=== PATIENT | male | born 1970 | race Caucasian/White ===

== ENCOUNTER → 2018-02-20 | Outpatient (CLI) | payer OTHER ==
[2018-02-20 12:03] LABS: EOS # 0.2 (0.04-0.40); EOS % 2.5 % (0.0-4.0); HEMATOCRIT 45.7 % (42.0-52.0); HEMOGLOBIN 15.8 g/dL (13.5-18.0); LYMPH# 2.5 (1.50-4.00); MEAN CELL VOLUME 88 fl (78-100); MEAN CORPUSCULAR HEMOGLOBIN 31 pg (27-31); MEAN CORPUSCULAR HGB CONC 35 g/dL (33-37); MEAN PLATELET VOLUME 9.8 fl (7.4-10.4); MONO # 0.7 (0.20-0.80); NEU # 3.7 (1.40-6.50); PLATELET COUNT 271 K/mm3 (130-400); RED BLOOD COUNT 5.18 M/mm3 (4.20-5.60); RED CELL DISTRIBUTION WIDTH 12.7 % (11.5-14.5); WHITE BLOOD COUNT 7.1 K/mm3 (4.8-10.8)
[2018-02-20 12:32] LABS: ALBUMIN 4.2 g/dL (3.5-5.0); CALCIUM 9.1 mg/dL (8.4-10.2); POTASSIUM 4.6 mmol/L (3.6-5.0); TOTAL BILIRUBIN 0.7 mg/dL (0.2-1.3); TOTAL PROTEIN 7.2 g/dL (6.3-8.2)
== END ==
LOC: LAB 11:41
PROVIDERS: Family Medicine
DX: Z00.00 Encounter for general adult medical examination without abnormal findings (principal)

== ENCOUNTER → 2019-03-07 | Outpatient (CLI) | payer BC ==
[2019-03-07 11:48] LABS: EOS # 0.2 (0.04-0.40); EOS % 2.6 % (0.0-4.0); HEMATOCRIT 45.8 % (42.0-52.0); HEMOGLOBIN 15.6 g/dL (13.5-18.0); LYMPH# 2.4 (1.50-4.00); MEAN CELL VOLUME 88 fl (78-100); MEAN CORPUSCULAR HEMOGLOBIN 30 pg (27-31); MEAN CORPUSCULAR HGB CONC 34 g/dL (33-37); MEAN PLATELET VOLUME 9.4 fl (7.4-10.4); MONO # 0.7 (0.20-0.80); PLATELET COUNT 276 K/mm3 (130-400); RED BLOOD COUNT 5.18 M/mm3 (4.20-5.60); RED CELL DISTRIBUTION WIDTH 12.8 % (11.5-14.5); WHITE BLOOD COUNT 6.3 K/mm3 (4.8-10.8)
[2019-03-07 12:04] LABS: ALBUMIN 4.1 g/dL (3.5-5.0); POTASSIUM 4.2 mmol/L (3.5-5.1)
[2019-03-07 12:06] LABS: CALCIUM 9.2 mg/dL (8.3-10.5)
[2019-03-07 12:09] LABS: TOTAL BILIRUBIN 1.4 mg/dL (0.2-1.2)
== END ==
LOC: RAD 11:28
PROVIDERS: Family Medicine
DX: Z00.00 Encounter for general adult medical examination without abnormal findings (principal); M25.561 Pain in right knee; E78.5 Hyperlipidemia, unspecified

== ENCOUNTER → 2019-03-20 | Outpatient (CLI) | payer BC | LOC: RAD 12:00 | DX: S83.241A Other tear of medial meniscus, current injury, right knee, initial encounter (principal) ==

== ENCOUNTER → 2021-03-15 | Outpatient (CLI) | payer BC ==
[2021-03-15 09:52] LABS: BASO # 0.05 K/mm3 (0.02-0.10); EOS # 0.12 K/mm3 (0.04-0.40); EOS % 1.9 % (0.0-4.0); HEMATOCRIT 46.5 % (42.0-52.0); HEMOGLOBIN 15.6 g/dL (13.5-18.0); LYMPH# 2.03 K/mm3 (1.50-4.00); MEAN CELL VOLUME 91 fl (78-100); MEAN CORPUSCULAR HEMOGLOBIN 30 pg (27-31); MEAN CORPUSCULAR HGB CONC 34 g/dL (33-37); MEAN PLATELET VOLUME 9.5 fl (7.4-10.4); MONO # 0.55 K/mm3 (0.20-0.80); NEU # 3.56 K/mm3 (1.40-6.50); PLATELET COUNT 288 K/mm3 (130-400); RED BLOOD COUNT 5.14 M/mm3 (4.20-5.60); RED CELL DISTRIBUTION WIDTH 12.3 % (11.5-14.5); WHITE BLOOD COUNT 6.3 K/mm3 (4.8-10.8)
[2021-03-15 10:02] LABS: ALBUMIN 4.1 g/dL (3.5-5.0); POTASSIUM 4.4 mmol/L (3.5-5.1)
[2021-03-15 10:04] LABS: TOTAL PROTEIN 6.9 g/dL (6.4-8.3)
[2021-03-15 10:06] LABS: TOTAL BILIRUBIN 0.7 mg/dL (0.2-1.2)
== END ==
LOC: LAB 09:22
PROVIDERS: Family Medicine
DX: Z00.00 Encounter for general adult medical examination without abnormal findings (principal); E78.5 Hyperlipidemia, unspecified

== ENCOUNTER → 2021-03-21 | Day surgery (SDC) | payer BC | END | disposition home or self-care (01) | LOC: MSO 08:46 | DX: Z12.11 Encounter for screening for malignant neoplasm of colon (principal); Z80.0 Family history of malignant neoplasm of digestive organs | CPT/HCPCS: 00812; J2704; J7120 ==

== ENCOUNTER → 2024-03-10 | Day surgery (SDC) | payer OTHER ==
[~2024-03-10] MED LIST: Ketorolac 30 MG/ML VIAL ONE; Lidocaine PF 2% (20 MG/ML) 5 ML VIAL ONE; Ondansetron 4 MG/2 ML VIAL ONE; fentaNYL 100 MCG/2 ML VIAL ONE
== END ==
LOC: MSO 10:25
DX: K64.4 Residual hemorrhoidal skin tags (principal); K62.1 Rectal polyp
CPT/HCPCS: 00902; J1885; J2405; J2704; J3010; J7120